=== PATIENT | male | born 1945 | race Caucasian/White ===

== ENCOUNTER 2018-04-18 07:23 | Day surgery (SDC) | payer OTHER, BC ==
[~2018-04-18] VITALS: Ht 165.1 cm; Wt 75.7 kg
[~2018-04-18 07:23] MED LIST: ALEVE220 MG PO; ALLERGY RELIEF10 M5 PO; ASPIRIN81 M2 PO; BEPREVE10 ML BOTH EYES; CIALIS5 MG PO; CRANBERRY500 M2 PO; FLONASE SENSIM5.9 ML BOTH NARES; GLUCOSAMINE &1 EAC1 PO; LIPITOR20 MG PO; LISINOPRIL10 MG PO; PROBIOTIC1 EAC1 PO; SAW PALMETTO500 MG PO; TYLENOL325 M2 PO; UROXATRAL10 MG PO; VITAMIN B COMP1 EACH PO; VITAMIN E400 UNIT PO; ZANTAC150 MG PO
[2018-04-18] MEDS ORDERED: ONCE DAILY1 EACH PO (08:09)
[2018-04-18 08:12] VITALS: BP 108/68
[2018-04-18 11:15] VITALS: BP 134/70
== END 2018-04-18 11:45 | disposition home or self-care (01) ==
LOC: SDC 07:23
PROC: 08B43ZZ Excision of Right Vitreous, Percutaneous Approach (ICD-10-PCS; principal; 2018-04-18)
PROC: 08QE3ZZ Repair Right Retina, Percutaneous Approach (ICD-10-PCS; principal; 2018-04-18)
DX: H43.21 Crystalline deposits in vitreous body, right eye (principal); H43.391 Other vitreous opacities, right eye; H33.311 Horseshoe tear of retina without detachment, right eye; Z79.82 Long term (current) use of aspirin; Z82.3 Family history of stroke; Z82.49 Family history of ischemic heart disease and other diseases of the circulatory system; I10 Essential (primary) hypertension; G47.33 Obstructive sleep apnea (adult) (pediatric); E78.2 Mixed hyperlipidemia; K21.9 Gastro-esophageal reflux disease without esophagitis; Z88.5 Allergy status to narcotic agent; Z88.8 Allergy status to other drugs, medicaments and biological substances
CPT/HCPCS: J0690; J0713; J2250; J2405; J3300